=== PATIENT | female | born 1960 | race Caucasian/White ===

== ENCOUNTER → 2016-12-24 | Outpatient (CLI) | payer OTHER ==
[~2016-12-24] MED LIST: BIOTIN5 MG PO; BLACK CURRANT SEED PO; CALCIUM 500 MG1 EACH PO; CHROMIUM PICO200 MCG PO; CLONAZEPAM0.5 MG PO; CO Q1060 MG PO; DAILY VITE1 EAC1 PO; DICLOFENAC SOD100 MG PO; FLUOXETINE HCL40 MG PO; IRON325 M1 PO; JANUVIA25 M1 PO; LOSARTAN POTASS50 MG PO; METFORMIN HCL1000 MG PO; METOPROLOL SUCC50 MG PO; MYCOSTATIN1 APPLICAT TP; NYSTATIN15 GM TP; OMEGA 3-6-9 CO1 EACH PO; OMEPRAZOLE40 M1 PO; PRAVACHOL40 MG PO; PRAVASTATIN SOD40 MG PO; PROBIOTIC PO; PROZAC40 MG PO; SUCRALFATE1 GM/10 ML PO; TOPROL XL50 MG PO; TRAMADOL HCL50 MG PO; ULTRAM50 MG PO; VITAMIN B-12500 MC5 SL
== END | disposition home or self-care (01) ==
DX: M16.12 Unilateral primary osteoarthritis, left hip (principal); R26.2 Difficulty in walking, not elsewhere classified; M62.81 Muscle weakness (generalized); M25.652 Stiffness of left hip, not elsewhere classified
CPT/HCPCS: 97110 GP; 97150 GO; 97161 GP; 97165 GO

== ENCOUNTER 2017-01-27 08:57 | Inpatient (IN) | payer OTHER ==
[~2017-01-27] VITALS: Ht 157.5 cm; Wt 90.0 kg
[~2017-01-27 08:57] MED LIST changes: +CARAFATE1 GM PO; +DICYCLOMINE HCL10 MG PO; +FIORICET,ESG1 TABLET PO; +LORATADINE10 M2 PO; +PROBIOTIC1 EAC1 PO; +TUMS500 MG PO
[2017-01-27 11:36] LABS: POINT-OF-CARE METER ID UU14174212
[2017-01-27] MEDS ORDERED: PAIN RELIEF325 M1 PO (11:46)
[2017-01-27 11:51] VITALS: BP 115/67
[2017-01-27 16:12] LABS: HEMATOCRIT 31.2 % (36.0-46.0); MCH 28.2 PG (29.0-34.0); MCHC 32.7 G/DL (30.0-36.0); MCV 86.2 FL (83-99); RBC DIS.WIDTH-SD 40.9 % (39-53); RED BLOOD COUNT 3.62 M/uL (3.80-5.20); WHITE BLOOD COUNT 10.7 K/uL (4.1-10.2)
[2017-01-27 16:13] LABS: PLATELET COUNT 222 K/uL (156-360)
[2017-01-27 16:26] LABS: POINT-OF-CARE METER ID UU13113675; POINT-OF-CARE USER ID 515036437
[2017-01-27 17:51] VITALS: BP 106/55
[2017-01-27 19:55] VITALS: BP 112/57
[2017-01-28 00:35] VITALS: BP 103/52
[2017-01-28 05:46] LABS: HEMATOCRIT 30.2 % (36.0-46.0); MCV 85.6 FL (83-99)
[2017-01-28 06:11] LABS: ANION GAP 7 MEQ/L (2-14); CHLORIDE 102 MEQ/L (99-109); GFR ESTIMATE (CALCULATED) > 59 mL/min/; GLUCOSE 161 mg/dL (70-99); SAMPLE HEMOLYSIS CHECK 1; SAMPLE ICTERIC CHECK 0; SAMPLE LIPEMIA CHECK 0; SODIUM 134 MEQ/L (136-147); UREA NITROGEN (BUN) 10 mg/dL (9-23)
[2017-01-28 06:15] LABS: POTASSIUM 4.5 MEQ/L (3.7-5.4)
[2017-01-28 07:39] VITALS: BP 112/58
[2017-01-28 12:00] VITALS: BP 108/53
[2017-01-28 15:47] VITALS: BP 112/58
[2017-01-28 20:08] VITALS: BP 103/53
[2017-01-28 22:10] LABS: ADD MIUA? YES; BILIRUBIN NEGATIVE; BLOOD SMALL; COLOR YELLOW ((YELLOW)); GLUCOSE (STRIP) NEGATIVE; KETONES NEGATIVE; LEUKOCYTES NEGATIVE; NITRITE NEGATIVE; PROTEIN (STRIP) NEGATIVE; SPECIFIC GRAVITY 1.004 (1.000-1.030); UROBILINOGEN 0.2 MG/DL (0.2-1.0)
[2017-01-28 22:39] LABS: BACTERIA NONE SEEN /HPF; EPITHELIAL CELLS RARE /HPF; MUCUS NONE SEEN /LPF; WHITE BLOOD CELLS 0-5 /HPF (0-5)
[2017-01-29 00:07] VITALS: BP 108/50
[2017-01-29 04:00] VITALS: BP 112/56
[2017-01-29 08:12] VITALS: BP 101/51
[2017-01-29] MEDS ORDERED: SENNA PLUS TAB1 EACH PO (08:34)
[2017-01-29] MEDS ORDERED: OXYCONTIN10 MG PO (08:35)
[2017-01-29] MEDS ORDERED: ENDOCET 5-3251 EACH PO (08:35)
[2017-01-29] MEDS ORDERED: LOVENOX40 MG/0.4 SC (08:35)
[2017-01-29 11:43] VITALS: BP 88/50
== END 2017-01-29 14:37 | disposition home health service (06) | DRG 470 ==
LOC: 2SOUTH 08:57 → 3WEST 17:15
PROVIDERS: Orthopaedic Surgery
PROC: 0SRB02A Replacement of Left Hip Joint with Metal on Polyethylene Synthetic Substitute, Uncemented, Open Approach (ICD-10-PCS; principal; 2017-01-27)
DX: M16.12 Unilateral primary osteoarthritis, left hip (principal); Z68.36 Body mass index [BMI] 36.0-36.9, adult; M1A.9XX0 Chronic gout, unspecified, without tophus (tophi); I45.10 Unspecified right bundle-branch block; E78.5 Hyperlipidemia, unspecified; M79.7 Fibromyalgia; E11.9 Type 2 diabetes mellitus without complications; I10 Essential (primary) hypertension; F41.9 Anxiety disorder, unspecified; K21.9 Gastro-esophageal reflux disease without esophagitis; K58.9 Irritable bowel syndrome, unspecified; D50.9 Iron deficiency anemia, unspecified; H35.30 Unspecified macular degeneration; E66.9 Obesity, unspecified; G47.33 Obstructive sleep apnea (adult) (pediatric)
CPT/HCPCS: 73501; 80048; 81003; 82948; 85014; 85018; 85027; C1713; J0131; J0690; J1170; J1650; J2175; J2250; J2405; J2765; J7030; J7050

== ENCOUNTER → 2017-11-11 | Outpatient (CLI) | payer OTHER ==
[~2017-11-11] VITALS: Ht 157.5 cm; Wt 98.0 kg
[~2017-11-11] MED LIST changes: +ENDOCET 5-3251 EACH PO; +LOVENOX40 MG/0.4 SC; +METAMUCIL SUGA283 GM PO; +MULTI-VITAMIN1 EAC4 PO; +OXYCONTIN10 MG PO; +PAIN RELIEF325 M1 PO; +SENNA PLUS TAB1 EACH PO
== END | disposition home or self-care (01) ==
LOC: AMB 12:52
PROVIDERS: Surgery
PROC: 0DJ08ZZ Inspection of Upper Intestinal Tract, Via Natural or Artificial Opening Endoscopic (ICD-10-PCS; principal; 2017-11-11)
DX: K29.70 Gastritis, unspecified, without bleeding (principal); K44.9 Diaphragmatic hernia without obstruction or gangrene
CPT/HCPCS: 82948

== ENCOUNTER 2018-05-25 05:15 | Day surgery (SDC) | payer OTHER ==
[~2018-05-25] VITALS: Ht 160 cm; Wt 102.1 kg
[~2018-05-25 05:15] MED LIST changes: +COLCRYS0.6 MG PO; +GLUCOPHAGE500 MG PO; +KLONOPIN0.5 M1 PO; +METFORMIN HCL500 M4 PO; +ZYRTEC10 M3 PO
[2018-05-25 06:00] VITALS: BP 136/89
[2018-05-25] MEDS ORDERED: DILAUDID4 MG PO (09:40)
[2018-05-25] MEDS ORDERED: ONDANSETRON HCL8 MG PO (09:40)
[2018-05-25] MEDS ORDERED: COLACE100 MG PO (09:40)
[2018-05-25 10:55] VITALS: BP 124/60
[2018-05-25 11:55] VITALS: BP 111/56
[2018-05-25 12:30] VITALS: BP 115/59
== END 2018-05-25 12:52 | disposition home or self-care (01) ==
LOC: SDC 05:15
PROVIDERS: Surgery
PROC: 0DP64CZ Removal of Extraluminal Device from Stomach, Percutaneous Endoscopic Approach (ICD-10-PCS; principal; 2018-05-25)
DX: K95.09 Other complications of gastric band procedure (principal); K21.9 Gastro-esophageal reflux disease without esophagitis; K66.0 Peritoneal adhesions (postprocedural) (postinfection); K44.9 Diaphragmatic hernia without obstruction or gangrene; I10 Essential (primary) hypertension; D64.89 Other specified anemias; E11.9 Type 2 diabetes mellitus without complications; M79.7 Fibromyalgia; E78.5 Hyperlipidemia, unspecified; E66.01 Morbid (severe) obesity due to excess calories; Z68.41 Body mass index [BMI] 40.0-44.9, adult; G47.33 Obstructive sleep apnea (adult) (pediatric); I45.10 Unspecified right bundle-branch block; Z88.8 Allergy status to other drugs, medicaments and biological substances; Z91.040 Latex allergy status; Z79.84 Long term (current) use of oral hypoglycemic drugs
CPT/HCPCS: 82948; 86850; 86900; 86901; 88300; J1170; J1644; J2250; J2405; J2710; J3010; J7643; S0074